=== PATIENT | female | born 1985 | race Caucasian/White ===

== ENCOUNTER → 2018-10-09 10:14 | Outpatient (CLI) | payer OTHER ==
--- NOTE | ~2018-10-09 | EC ---
PATIENT:NELI BURGESS DATE OF SERVICE: 10/09/18 SEX: F MEDICAL RECORD: [id number] DATE OF : [birth year] LOCATION:[facility] AGE OF PATIENT: 33 ADMISSION DATE: 10/09/18 REFERRING PHYSICIAN: INTERPRETING PHYSICIAN: PRECIOUS COATS MD ECHOCARDIOGRAM REPORT ECHO CHARGES 4 ECHO COMPLETE Date: 10/09/18 CLINICAL DIAGNOSIS: PRE CHEMO/ ASSESS EF AND VALVLES ECHOCARDIOGRAPHIC MEASUREMENTS (adult normal given) AC root (d.<3.7cm) 3.3 cm LV Septum d (<1.2 cm> 1.3 cm Valve Excursion 1.8 cm LV Septum (systole) 1.6 cm Left Atria (s.<4.0cm> 3.6 cm LVPW d(<1.2cm) 1.3 cm RV (d.<2.3cm) 4.1 cm LVPW (sytole) 1.7 cm LV diastole(<5.6CM) 4.8 cm MV E-F(>70mm/sec) cm LV systole 3.5 cm LVOT Diameter 1.7 cm MV exc.(>10mm) 2.0 cm Est.ejection fraction (50-75%) % DOPPLER: LVIT cm/sec A 60.0 cm/sec E 88.0 cm/sec LA cm/sec RVSP 15 mmHg LVOT 108 cm/sec AOP1/2T m/s Asc. 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 Coats TAPE# PACS Pericardial Effusion N DATE OF SERVICE: 10/09/2018 DATE OF SERVICE: 10/09/2018 FINDINGS: 1. Left ventricular chamber size is within normal limits. Left ventricular systolic function is normal. Overall ejection fraction estimated at 60%. 2. Left atrium, right atrium, and right ventricle chamber sizes are within normal limits. 3. Valvular structures have normal structure and motion. ECHOCARDIOGRAM REPORT [id number] NELI BURGESS 4. Doppler interrogation reveals no significant valvular insufficiency or stenosis. 5. No evidence of pericardial effusion or left ventricular thrombus. 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
== END | disposition home or self-care (01) ==
LOC: D.ECHO 10:14
PROVIDERS: ATTEND Internal Medicine Hematology & Oncology
DX: R59.9 Enlarged lymph nodes, unspecified (principal); C81.11 Nodular sclerosis Hodgkin lymphoma, lymph nodes of head, face, and neck; Z51.11 Encounter for antineoplastic chemotherapy

== ENCOUNTER → 2019-08-21 08:55 | Outpatient (CLI) | payer OTHER | END | disposition home or self-care (01) | LOC: D.ECHO 08:55 | PROVIDERS: ATTEND Internal Medicine Medical Oncology | DX: R59.9 Enlarged lymph nodes, unspecified (principal); C81.11 Nodular sclerosis Hodgkin lymphoma, lymph nodes of head, face, and neck; E86.0 Dehydration; D50.9 Iron deficiency anemia, unspecified; D70.1 Agranulocytosis secondary to cancer chemotherapy; Z51.11 Encounter for antineoplastic chemotherapy ==